=== PATIENT | female | born 1975 | race Caucasian/White ===

== ENCOUNTER 2021-02-03 10:56 | Emergency (ER) | payer OTHER ==
[~2021-02-03] VITALS: Ht 157.5 cm; Wt 91.6 kg
[2021-02-03 10:58] VITALS: BP 150/71
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
[2021-02-03] MEDS ORDERED: KETOROLAC 30 MG/ML VIAL IM ONE (13:15)
--- NOTE | 2021-02-03 13:37 | NUR ---
pt taken to ct via wheelchair
[2021-02-03] MEDS ORDERED: diazePAM 5 MG TAB PO ONE (13:45)
[2021-02-03] MEDS ORDERED: ONDANSETRON 4 MG ODT PO ONE (13:45)
[2021-02-03] MEDS ORDERED: DIAZ5TAB7 PO (14:11)
[2021-02-03] MEDS ORDERED: NAPR-54 PO (14:11)
[2021-02-03 14:28] VITALS: BP 150/71
--- NOTE | 2021-02-03 14:29 | NUR ---
Patient discharged with v/s stable. Written and verbal after care instructions given and explained. Patient alert, oriented and verbalized understanding of instructions. Ambulatory with steady gait. All questions addressed prior to discharge. ID band removed. Patient advised to follow up with PMD. Rx of naproxen, zofran given. Patient educated on indication of medication including possible reaction and side effects. Opportunity to ask questions provided and answered.
== END 2021-02-03 14:29 | disposition home or self-care (01) ==
LOC: MED 10:56
DX: S09.90XA Unspecified injury of head, initial encounter (principal); Y04.8XXA Assault by other bodily force, initial encounter; Y93.89 Activity, other specified; Y92.89 Other specified places as the place of occurrence of the external cause; Y99.8 Other external cause status
CPT/HCPCS: 70450; 96372; 99284; J1885; Q0162